=== PATIENT | female | born 2005 | race Caucasian/White ===

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

== ENCOUNTER 2024-02-03 07:14 | Observation (INO) | payer BC ==
[2024-02-03 08:01] LABS: Appearance Cloudy (Clear); Bacteria Many /HPF (None Seen); Bilirubin Small (Negative); Blood Negative (Negative); Epithelial Cells Many /HPF (None Seen); Glucose, Urine Negative (Negative); Ketones 15 (Negative); Leukocyte Esterase Large (Negative); Nitrite Negative (Negative); Protein,Urine Dip 100 (Negative); RBC 0-2 /HPF (0-5); Specific Gravity 1.025 (1.005-1.030); WBC >100 /HPF (0-5)
[2024-02-03] MEDS: ROCEPHIN 1 GM / 100 ML NaCl 1 GM/100 ML IVPB IV ONE (08:46)
[2024-02-03] MEDS: Lactated Ringers 1,000 ML IV SCH ×2 (08:46→10:49)
--- NOTE | 2024-02-03 08:46 | PCM.HP ---
History of Present Illness - Chief Complaint Chief Complaint: abdominal pain History of Present Illness: is a 18 year old female G1Po at 35w2d EGA who sees Dr Yuan in [place] for OB care, she reports to labor and delivery here today with complaints of low abdominal pain for the last 2-3 days, pain is worsening in intensity and comes and goes, she has had vomiting throughout her entire but has worsened to the point of not being able to keep down any fluids or food in the last 2 days. I asked if she had contacted Dr Yuan her OB provider and she states she was told to come in for evaluation and fluids but she decided to come to [place], no known fever, she denies urinary symptoms. - Review of Systems Constitutional: Chills Respiratory: No Cough, No Short Of Breath Cardiac: No Chest Pain, No Edema, No Syncope Abdominal/Gastrointestinal: Abdominal Pain, Nausea, Vomiting, No Diarrhea Genitourinary Symptoms: No Symptoms Skin: No Rash All Other Systems: Reviewed and Negative Medications & Allergies Home Medications: Home Medication List Docusate Sodium [Stool Softener] 1 tab PO DAILY 02/03/24 [History Confirmed 02/03/24] Ondansetron [Ondansetron Odt ] 1 tab PO Q4H PRN 02/03/24 [History Confirmed 02/03/24] Allergies/Adverse Reactions: Allergies Allergy/AdvReac Type Severity Reaction Status Date / Time No Known Drug Allergies Allergy Verified 10/21/21 11:54 - Past Medical History Past Medical History: No GI Medical History: GERD Reproductive Disorders: Other Comment: PCOS, - Past Surgical History Past Surgical History: Yes Neuro Surgical History: No Pertinent History Cardiac History: No Pertinent History Respiratory Surgery: No Pertinent History GI Surgical History: Appendectomy Genitourinary Surgical Hx: No Pertinent History Musculskeletal Surgical Hx: No Pertinent History Female Surgical History: No Pertinent History - Social History Smoking Status: Current every day smoker How long have you smoked: year Exposure to second hand smoke: No Alcohol: None Drug Use: marijuana - Physical Exam General Appearance: mild distress Neurologic Exam: alert, oriented x 3, cooperative Respiratory Exam: normal breath sounds, lungs clear, No respiratory distress Cardiovascular Exam: regular rate/rhythm, normal heart sounds, normal peripheral pulses Gastrointestinal/Abdomen Exam: soft, other (gravid SVE 1cm/50%/-2) Back Exam: No CVA tenderness Extremity Exam: normal inspection, normal range of motion, pelvis stable Skin Exam: normal color, warm, dry, No rash Results - Labs Lab/Micro Results: Lab Results-Last 24 Hours 02/03/24 Range/Units 07:53 Urine Color Dark Yellow A (Yellow) Urine Appearance Cloudy A (Clear) Urine pH 7.0 (4.6-8.0) Ur Specific [place] 1.025 (1.005-1.030) Urine Protein 100 A (Negative) Urine Glucose (UA) Negative (Negative) mg/dL Urine Ketones 15 A (Negative) Urine Blood Negative (Negative) Urine Nitrite Negative (Negative) Urine Bilirubin Small A (Negative) Urine Urobilinogen 1.0 A (0.2) mg/dL Ur Leukocyte Esterase Large A (Negative) U Hyaline Cast (Auto) 3-5 A (0-2) /LPF Urine Microscopic RBC 0-2 (0-5) /HPF Urine Microscopic WBC >100 A (0-5) /HPF Ur Epithelial Cells Many A (None Seen) /HPF Urine Bacteria Many A (None Seen) /HPF Urine Culture Reflexed YES (NO) Assessment/Plan (1) Acute pyelonephritis Current Visit: Yes Status: Acute Assessment & Plan: no allergies, based on UA with >100wbc/hpf appears to have pyelonephritis. see labs/blood culture and urine culture pending. start rocephin 1g IV daily Code(s): N10 - ACUTE PYELONEPHRITIS (2) Dehydration Current Visit: Yes Status: Acute Assessment & Plan: LR bolus 1L ordered then will run at 120 mL/hr Code(s): E86.0 - DEHYDRATION (3) Nausea & vomiting Current Visit: Yes Status: Acute Assessment & Plan: likely a component of hyperemesis, IV zofran ordered and will hydrate. likely exacerbated by active infection as above Code(s): R11.2 - NAUSEA WITH VOMITING, UNSPECIFIED (4) Current Visit: Yes Status: Acute Code(s): Z34.90 - ENCNTR FOR SUPRVSN OF NORMAL , UNSP, UNSP TRIMESTER
[2024-02-03] MEDS: Zofran 4 MG/2 ML VIAL IV PRN (09:02)
[2024-02-03 09:04] LABS: Amphetamine,Urine NEGATIVE (NEGATIVE); Barbiturate,Urine NEGATIVE (NEGATIVE); Benzodiazepine,Urine NEGATIVE (NEGATIVE); Cocaine,Urine NEGATIVE (NEGATIVE); Methadone,Urine NEGATIVE (NEGATIVE); Opiate,Urine NEGATIVE (NEGATIVE); PCP,Urine NEGATIVE (NEGATIVE); THC,Urine POSITIVE (NEGATIVE)
[2024-02-03 09:33] VITALS: TEMP 97.8
[2024-02-03 09:59] LABS: Absolute Neutrophil Ct (ANC) 6.46 x10^3/uL (1.56-6.13); BASOPHIL % 0.2 % (0.1-1.2); Basophil (Absolute #) 0.02 x10^3/uL (0.01-0.08); Eosinophil % 0.1 % (0.7-5.8); Eosinophil (Absolute #) 0.01 x10^3/uL (0.04-0.36); Hematocrit 33.9 % (34.1-44.9); Hemoglobin 11.1 g/dL (11.2-15.7); IMMATURE GRAN # 0.05 x10^3u/L (0.001-0.031); IMMATURE GRAN % 0.6 % (0.001-0.429); Lymphocyte (Absolute #) 1.21 x10^3/uL (1.18-3.74); Lymphocytes % 15.1 % (19.3-51.7); Mean Cell Volume 82.5 fL (79.4-94.8); Mean Corpuscular Hgb Concent. 32.7 g/dL (32.2-35.5); Mean Platelet Volume 10.9 fL (9.4-12.3); Monocyte (Absolute #) 0.28 x10^3/uL (0.24-0.86); Monocytes % 3.5 % (4.7-12.5); Neutrophil % 80.5 % (34.0-71.1); Platelet Count 186 x10^3/uL (182-369); Red Blood Count 4.11 x10^6/uL (3.93-5.22); Red Cell Distribution Width 12.8 % (11.7-14.4)
[2024-02-03 10:15] LABS: ALBUMIN 3.6 g/dL (3.5-5.0); ANION GAP 11.1 MEQ/L (5-15); BILIRUBIN,TOTAL 0.4 mg/dL (0.2-1.3); Calcium 8.4 mg/dL (8.4-10.2); Creatinine 1 0.6 mg/dL (0.52-1.04); EST GLOMERULAR FILTRATION RATE 131.7 ML/MIN; Potassium 3.6 mmol/L (3.5-5.1); Total Protein 6.8 g/dL (6.3-8.2)
[2024-02-03] MEDS: TYLENOL 325 MG PO PRN (10:18)
[2024-02-03] MEDS: BRETHINE 1 MG/ML SQ ONE (10:22)
--- NOTE | 2024-02-03 12:07 | PCM.DS ---
Discharge Summary Date of Admission: 02/03/24 07:14 Admitting Physician: DELMAR DEWEY Primary Care Provider: OBED PHILIPPE Allergies Allergies No Known Drug Allergies Allergy (Verified 10/21/21 11:54) Hospital Summary - Hospital Course Hospital Course: patient arrived with abd pain, 35wks patient of Dr Yuan. found to have pyelonephrtitis, given rocephin 1g IV, had tachycardia epidose with terbutaline, continues to contract every 3 to 4 minutes after fluids and terb - Vitals & Intake/Output Vital Signs: Vital Signs Temperature 97.8 F 02/03/24 07:30 Pulse Rate 90 02/03/24 07:30 Respiratory Rate 14 02/03/24 07:30 Blood Pressure 113/77 02/03/24 07:30 O2 Sat by Pulse Oximetry 97 02/03/24 07:30 Intake & Output: Intake & Output 02/01/24 02/02/24 02/03/24 02/04/24 11:59 11:59 11:59 11:59 Weight 57.606 kg - Lab Result Diagrams: 02/03/24 09:58 02/03/24 09:58 Lab Results-Last 24 Hrs: Lab Results-Last 24 Hours 02/03/24 02/03/24 02/03/24 Range/Units 07:53 08:05 09:58 WBC 8.0 (3.98-10.04) x10^3/uL RBC 4.11 (3.93-5.22) x10^6/uL Hgb 11.1 L (11.2-15.7) g/dL Hct 33.9 L (34.1-44.9) % MCV 82.5 (79.4-94.8) fL MCH 27.0 (25.6-32.2) pg MCHC 32.7 (32.2-35.5) g/dL RDW 12.8 (11.7-14.4) % Plt Count 186 (182-369) x10^3/uL MPV 10.9 (9.4-12.3) fL Gran % 80.5 H (34.0-71.1) % Immature Gran % (Auto) 0.6 H (0.001-0.429) % Nucleat RBC Rel Count 0.0 (0.00-0.2) % Eos # (Auto) 0.01 L (0.04-0.36) x10^3/uL Immature Gran # (Auto) 0.05 H (0.001-0.031) x10^3u/L Absolute Lymphs (auto) 1.21 (1.18-3.74) x10^3/uL Absolute Monos (auto) 0.28 (0.24-0.86) x10^3/uL Absolute Nucleated RBC 0.00 (0.00-0.012) x10^3u/L Lymphocytes % 15.1 L (19.3-51.7) % Monocytes % 3.5 L (4.7-12.5) % Eosinophils % 0.1 L (0.7-5.8) % Basophils % 0.2 (0.1-1.2) % Absolute Granulocytes 6.46 H (1.56-6.13) x10^3/uL Basophils # 0.02 (0.01-0.08) x10^3/uL Sodium (135-145) mmol/L Potassium (3.5-5.1) mmol/L Chloride (98-107) mmol/L Carbon Dioxide (22-30) mmol/L Anion Gap (5-15) MEQ/L BUN (7-17) mg/dL Creatinine (0.52-1.04) mg/dL Estimated GFR ML/MIN Glucose (74-106) mg/dL Calcium (8.4-10.2) mg/dL Total Bilirubin (0.2-1.3) mg/dL AST (14-36) U/L ALT (0-35) U/L Alkaline Phosphatase (38-126) U/L Serum Total Protein (6.3-8.2) g/dL Albumin (3.5-5.0) g/dL Urine Color Dark Yellow A (Yellow) Urine Appearance Cloudy A (Clear) Urine pH 7.0 (4.6-8.0) Ur Specific [place] 1.025 (1.005-1.030) Urine Protein 100 A (Negative) Urine Glucose (UA) Negative (Negative) mg/dL Urine Ketones 15 A (Negative) Urine Blood Negative (Negative) Urine Nitrite Negative (Negative) Urine Bilirubin Small A (Negative) Urine Urobilinogen 1.0 A (0.2) mg/dL Ur Leukocyte Esterase Large A (Negative) U Hyaline Cast (Auto) 3-5 A (0-2) /LPF Urine Microscopic RBC 0-2 (0-5) /HPF Urine Microscopic WBC >100 A (0-5) /HPF Ur Epithelial Cells Many A (None Seen) /HPF Urine Bacteria Many A (None Seen) /HPF Urine Culture Reflexed YES (NO) Urine Opiates Level NEGATIVE (NEGATIVE) Ur Methadone NEGATIVE (NEGATIVE) Urine Barbiturates NEGATIVE (NEGATIVE) Ur Phencyclidine (PCP) NEGATIVE (NEGATIVE) Urine Amphetamine NEGATIVE (NEGATIVE) U Benzodiazepine Level NEGATIVE (NEGATIVE) Urine Cocaine NEGATIVE (NEGATIVE) Urine Marijuana (THC) POSITIVE A (NEGATIVE) 02/03/24 Range/Units 09:58 WBC (3.98-10.04) x10^3/uL RBC (3.93-5.22) x10^6/uL Hgb (11.2-15.7) g/dL Hct (34.1-44.9) % MCV (79.4-94.8) fL MCH (25.6-32.2) pg MCHC (32.2-35.5) g/dL RDW (11.7-14.4) % Plt Count (182-369) x10^3/uL MPV (9.4-12.3) fL Gran % (34.0-71.1) % Immature Gran % (Auto) (0.001-0.429) % Nucleat RBC Rel Count (0.00-0.2) % Eos # (Auto) (0.04-0.36) x10^3/uL Immature Gran # (Auto) (0.001-0.031) x10^3u/L Absolute Lymphs (auto) (1.18-3.74) x10^3/uL Absolute Monos (auto) (0.24-0.86) x10^3/uL Absolute Nucleated RBC (0.00-0.012) x10^3u/L Lymphocytes % (19.3-51.7) % Monocytes % (4.7-12.5) % Eosinophils % (0.7-5.8) % Basophils % (0.1-1.2) % Absolute Granulocytes (1.56-6.13) x10^3/uL Basophils # (0.01-0.08) x10^3/uL Sodium 136 (135-145) mmol/L Potassium 3.6 (3.5-5.1) mmol/L Chloride 103 (98-107) mmol/L Carbon Dioxide 26 (22-30) mmol/L Anion Gap 11.1 (5-15) MEQ/L BUN 8 (7-17) mg/dL Creatinine 0.60 (0.52-1.04) mg/dL Estimated GFR 131.7 ML/MIN Glucose 75 (74-106) mg/dL Calcium 8.4 (8.4-10.2) mg/dL Total Bilirubin 0.40 (0.2-1.3) mg/dL AST 43 H (14-36) U/L ALT 31 (0-35) U/L Alkaline Phosphatase 171 H (38-126) U/L Serum Total Protein 6.8 (6.3-8.2) g/dL Albumin 3.6 (3.5-5.0) g/dL Urine Color (Yellow) Urine Appearance (Clear) Urine pH (4.6-8.0) Ur Specific [place] (1.005-1.030) Urine Protein (Negative) Urine Glucose (UA) (Negative) mg/dL Urine Ketones (Negative) Urine Blood (Negative) Urine Nitrite (Negative) Urine Bilirubin (Negative) Urine Urobilinogen (0.2) mg/dL Ur Leukocyte Esterase (Negative) U Hyaline Cast (Auto) (0-2) /LPF Urine Microscopic RBC (0-5) /HPF Urine Microscopic WBC (0-5) /HPF Ur Epithelial Cells (None Seen) /HPF Urine Bacteria (None Seen) /HPF Urine Culture Reflexed (NO) Urine Opiates Level (NEGATIVE) Ur Methadone (NEGATIVE) Urine Barbiturates (NEGATIVE) Ur Phencyclidine (PCP) (NEGATIVE) Urine Amphetamine (NEGATIVE) U Benzodiazepine Level (NEGATIVE) Urine Cocaine (NEGATIVE) Urine Marijuana (THC) (NEGATIVE) Discharge Exam General Appearance: mild distress Pelvic Exam: other (sve 1cm/50%/-2) Final Diagnosis/Problem List - Final Discharge Diagnosis/Problem (1) labor Current Visit: Yes Status: Acute Assessment & Plan: I spoke with Jazmyn in Dr Yuan's office, he is in surgery but she advised she will contact him and he will accept patient to labor and delivery at [facility] at this time. betamethasone and magnesium ordered, patient will be transferred due to lack of NICU services with potential delivery. I explained to the patient the need for transfer in case she progresses and delivers and she understands necessity for transfer at this time. Code(s): O60.00 - LABOR WITHOUT DELIVERY, UNSPECIFIED TRIMESTER (2) Acute pyelonephritis Current Visit: Yes Status: Acute Assessment & Plan: received 1g rocephin IV, urine and blood cultures are pending. Code(s): N10 - ACUTE PYELONEPHRITIS (3) Dehydration Current Visit: Yes Status: Acute Code(s): E86.0 - DEHYDRATION (4) Nausea & vomiting Current Visit: Yes Status: Acute Code(s): R11.2 - NAUSEA WITH VOMITING, UNSPECIFIED (5) Current Visit: Yes Status: Acute Code(s): Z34.90 - ENCNTR FOR SUPRVSN OF NORMAL , UNSP, UNSP TRIMESTER - Discharge Disposition: DC TO [facility] Condition: Fair Prescriptions: No Action Ondansetron [Ondansetron Odt ] 1 tab PO Q4H PRN PRN Reason: Nausea Docusate Sodium [Stool Softener] 1 tab PO DAILY Follow up with: LIZZ PULIDO FNP [Primary Care Provider] -
[2024-02-03] MEDS: Magnesium Sulfate 40 Gm/1000 Ml H2O Premix*** 1,000 ML IV SCH (12:49)
[2024-02-03] MEDS: Celestone Soluspan 6MG/ML IM ONE (12:49)
[2024-02-03 15:02] VITALS: PULSE 108; RESP 16; O2SAT 100
[2024-02-03 15:13] VITALS: BP 113/77
== END 2024-02-03 12:30 | disposition short-term general hospital (02) ==
LOC: OB 07:14
PROVIDERS: ADMIT Family Medicine; ATTEND Family Medicine
DX: Z34.03 Encounter for supervision of normal first pregnancy, third trimester (principal); Z3A.35 35 weeks gestation of pregnancy
CPT/HCPCS: 36415; 80053; 80307; 81001; 85025; 87040; 87086; 96372; G0378; G0379; J0696; J2405; A9270-GY

== ENCOUNTER 2024-02-04 08:32 | Observation (INO) | payer BC ==
[2024-02-04 09:07] LABS: Appearance Turbid (Clear); Bacteria None Seen /HPF (None Seen); Bilirubin Negative (Negative); Blood Negative (Negative); Epithelial Cells Few /HPF (None Seen); Glucose, Urine Negative (Negative); Hyaline Casts NONE SEEN /LPF (0-2); Ketones 80 (Negative); Leukocyte Esterase Small (Negative); Nitrite Negative (Negative); Ph 8.5 (4.6-8.0); Protein,Urine Dip Trace (Negative); RBC 0-2 /HPF (0-5); Specific Gravity 1.015 (1.005-1.030); Urobilinogen 0.2 mg/dL (0.2)
[2024-02-04] MEDS: Lactated Ringers 1,000 ML IV ONE (09:36)
[2024-02-04] MEDS: Zofran 4 MG/2 ML VIAL IV STA (09:36)
[2024-02-04 10:20] LABS: Absolute Neutrophil Ct (ANC) 5.18 x10^3/uL (1.56-6.13); BASOPHIL % 0.3 % (0.1-1.2); Basophil (Absolute #) 0.02 x10^3/uL (0.01-0.08); Eosinophil % 0.1 % (0.7-5.8); Eosinophil (Absolute #) 0.01 x10^3/uL (0.04-0.36); Hematocrit 33.8 % (34.1-44.9); Hemoglobin 10.9 g/dL (11.2-15.7); IMMATURE GRAN # 0.04 x10^3u/L (0.001-0.031); IMMATURE GRAN % 0.6 % (0.001-0.429); Lymphocyte (Absolute #) 1.34 x10^3/uL (1.18-3.74); Lymphocytes % 19.2 % (19.3-51.7); Mean Cell Volume 81.6 fL (79.4-94.8); Mean Corpuscular Hemoglobin 26.3 pg (25.6-32.2); Mean Corpuscular Hgb Concent. 32.2 g/dL (32.2-35.5); Monocyte (Absolute #) 0.39 x10^3/uL (0.24-0.86); Monocytes % 5.6 % (4.7-12.5); Neutrophil % 74.2 % (34.0-71.1); Platelet Count 205 x10^3/uL (182-369); Red Blood Count 4.14 x10^6/uL (3.93-5.22); Red Cell Distribution Width 12.9 % (11.7-14.4)
[2024-02-04 10:32] LABS: ALBUMIN 3.6 g/dL (3.5-5.0); ANION GAP 11.3 MEQ/L (5-15); BILIRUBIN,TOTAL 0.5 mg/dL (0.2-1.3); Creatinine 1 0.66 mg/dL (0.52-1.04); EST GLOMERULAR FILTRATION RATE 128.7 ML/MIN; Potassium 3.5 mmol/L (3.5-5.1); Total Protein 6.9 g/dL (6.3-8.2)
[2024-02-04] MEDS ORDERED: Docusate Sodium 100 MG PO SCH (12:00)
[2024-02-04] MEDS: Lactated Ringers 1,000 ML IV SCH (12:03)
[2024-02-04] MEDS: TYLENOL EXTRA STRENGTH 500 MG PO PRN (12:45)
--- NOTE | 2024-02-04 14:39 | XRAY ---
Indication: Kidney stone. Lower abdominal pain. Third trimester . Two-dimensional renal sonogram performed. Comparison: None Both kidneys are normal in reniform shape with normal color perfusion. Right kidney measures 11.3 x 6.2 x 5.0 cm and left measures 10.4 x 5.7 x 5.1 cm. Query a few bilateral renal punctate calculi. No hydronephrosis, perinephric fluid, or evidence for obstructive uropathy. Visualized urinary bladder grossly unremarkable. Normal left ureteral jet. Right ureteral jet not seen within the allotted exam time. Impression: Query bilateral renal punctate calculi. No hydronephrosis or evidence for obstructive uropathy.
--- NOTE | 2024-02-04 14:41 | XRAY ---
Indication: Small for gestational age. 2-dimensional OB ultrasound performed. Comparison: None Single intrauterine currently in cephalic presentation. heart rate 138 BPM. The umbilical cord is around neck. Posterior fundal placenta without abruption/previa. BPD measures 8.81 cm corresponding to 35 weeks 4 days. HC measures 31.29 cm corresponding to 35 weeks 0 days. AC measures 31.67 cm corresponding to 35 weeks 4 days. FL measures 6.99 cm corresponding to 35 weeks 6 days. Estimated weight 6 lbs. 0 oz., +/-14 ounces. Approximately 50 percentile. LO is 10.2 cm. Impression: Single viable intrauterine with mean gestational age 35 weeks 4 days. Expected date confinement is March 06, 2024. Incidental complete nuchal cord.
[2024-02-04] MEDS: Cyclobenzaprine 10 MG PO ONE (16:17)
[2024-02-04 16:48] VITALS: BP 132/72; PULSE 79; RESP 16; TEMP 97.9; O2SAT 100
== END 2024-02-04 16:45 | disposition home or self-care (01) ==
LOC: OB 08:32
PROVIDERS: ADMIT Obstetrics & Gynecology; ATTEND Obstetrics & Gynecology
DX: Z34.03 Encounter for supervision of normal first pregnancy, third trimester (principal); Z3A.35 35 weeks gestation of pregnancy
CPT/HCPCS: 36415; 76770; 76805; 80053; 81001; 85025; 87086; G0378; G0379; J2405; A9270-GY

== ENCOUNTER 2024-02-28 07:55 | Inpatient (IN) | payer BC ==
[2024-02-28] MEDS ORDERED: STADOL 2 MG IV PRN (18:00)
[2024-02-28] MEDS ORDERED: BRETHINE 1 MG/ML SQ PRN (18:00)
[2024-02-28] MEDS ORDERED: Nubain 10 MG/ML IV PRN (18:00)
[2024-02-28] MEDS: Lactated Ringers 1,000 ML IV SCH (19:30)
[2024-02-28 19:56] LABS: Absolute Neutrophil Ct (ANC) 8.19 x10^3/uL (1.56-6.13); BASOPHIL % 0.3 % (0.1-1.2); Basophil (Absolute #) 0.03 x10^3/uL (0.01-0.08); Eosinophil % 0.2 % (0.7-5.8); Eosinophil (Absolute #) 0.02 x10^3/uL (0.04-0.36); Hematocrit 30.1 % (34.1-44.9); Hemoglobin 9.7 g/dL (11.2-15.7); IMMATURE GRAN # 0.04 x10^3u/L (0.001-0.031); IMMATURE GRAN % 0.4 % (0.001-0.429); Lymphocyte (Absolute #) 1.59 x10^3/uL (1.18-3.74); Lymphocytes % 15.3 % (19.3-51.7); Mean Cell Volume 78.2 fL (79.4-94.8); Mean Corpuscular Hemoglobin 25.2 pg (25.6-32.2); Mean Corpuscular Hgb Concent. 32.2 g/dL (32.2-35.5); Mean Platelet Volume 11.1 fL (9.4-12.3); Monocyte (Absolute #) 0.49 x10^3/uL (0.24-0.86); Monocytes % 4.7 % (4.7-12.5); Neutrophil % 79.1 % (34.0-71.1); Platelet Count 177 x10^3/uL (182-369); Red Blood Count 3.85 x10^6/uL (3.93-5.22); Red Cell Distribution Width 13.6 % (11.7-14.4); White Blood Count 10.4 x10^3/uL (3.98-10.04)
[2024-02-28 20:41] LABS: ABO TYPING O; Antibody Screen NEGATIVE (NEGATIVE); RH TYPING POSITIVE
[2024-02-28 20:43] LABS: Appearance Clear (Clear); Bacteria None Seen /HPF (None Seen); Bilirubin Negative (Negative); Blood Negative (Negative); Epithelial Cells None Seen /HPF (None Seen); Glucose, Urine Negative (Negative); Hyaline Casts NONE SEEN /LPF (0-2); Ketones Trace (Negative); Leukocyte Esterase Negative (Negative); Nitrite Negative (Negative); Protein,Urine Dip Trace (Negative); RBC 0-2 /HPF (0-5); Specific Gravity 1.025 (1.005-1.030); Urobilinogen 0.2 mg/dL (0.2)
[2024-02-28] MEDS: PITOCIN 30 UNITS/ LR 500 ML 30 UNITS/500 ML PLAST..BAG IV SCH (20:46)
[2024-02-28 20:52] LABS: Amphetamine,Urine NEGATIVE (NEGATIVE); Barbiturate,Urine NEGATIVE (NEGATIVE); Benzodiazepine,Urine NEGATIVE (NEGATIVE); Cocaine,Urine NEGATIVE (NEGATIVE); Methadone,Urine NEGATIVE (NEGATIVE); Opiate,Urine NEGATIVE (NEGATIVE); PCP,Urine NEGATIVE (NEGATIVE); THC,Urine POSITIVE (NEGATIVE)
[2024-02-28] MEDS: Tums EX 750 MG PO PRN (22:12)
[2024-02-28] MEDS: TYLENOL EXTRA STRENGTH 500 MG PO PRN (23:38)
[2024-02-28 23:47] LABS: AMNISURE TEST RESULTS POSITIVE (NEGATIVE)
[2024-02-29] MEDS: Lactated Ringers 1,000 ML IV ONE (00:17)
[2024-02-29] MEDS ORDERED: FENTANYL 2 MCG-BUPIV 0.125%-NS 250 ML Epidur 250 ML EPIDURAL ONE (00:27)
[2024-02-29] MEDS: Zofran 4 MG/2 ML VIAL IV PRN (00:35)
[2024-02-29] MEDS: FENTANYL 2 MCG-BUPIV 0.125%-NS 250 ML Epidur 250 ML EPIDURAL SCH (00:45)
[2024-02-29 03:16] LABS: Appearance Clear (Clear); Bacteria None Seen /HPF (None Seen); Bilirubin Negative (Negative); Blood Trace (Negative); Epithelial Cells None Seen /HPF (None Seen); Glucose, Urine Negative (Negative); Hyaline Casts NONE SEEN /LPF (0-2); Ketones Negative (Negative); Leukocyte Esterase Negative (Negative); Nitrite Negative (Negative); Protein,Urine Dip Negative (Negative); RBC 0-2 /HPF (0-5); Specific Gravity <=1.005 (1.005-1.030); Urobilinogen 0.2 mg/dL (0.2)
[2024-02-29] MEDS ORDERED: Ephedrine Sulfate 50 MG/ML IV PRN (07:00)
[2024-02-29] MEDS: TUCKS TP PRN (08:54)
[2024-02-29] MEDS: LANSINOH 40 GM TOP PRN (08:55)
[2024-02-29] MEDS: Dermoplast Spray TP PRN (08:55)
[2024-02-29] MEDS: Docusate Sodium 100 MG PO SCH (12:01)
[2024-02-29] MEDS ORDERED: PITOCIN 30 UNITS/ LR 500 ML 30 UNITS/500 ML PLAST..BAG IV SCH (15:00)
[2024-02-29] MEDS ORDERED: XYLOCAINE 1% HCL 20 ML MDV IJ PRN (15:00)
[2024-02-29] MEDS: MOTRIN 400 MG PO PRN (15:05)
[2024-03-01] MEDS: Adacel Vial IM ONE (01:29)
[2024-03-01 03:32] VITALS: BP 114/65; PULSE 66; RESP 18; TEMP 98.4; O2SAT 99
[2024-03-01 07:23] LABS: RPR Non Reactive (Non Reactive)
== END 2024-03-01 01:35 | disposition home or self-care (01) | DRG 807 ==
LOC: OB 18:39 → OBSVTOIN 02-29 08:30
PROVIDERS: ADMIT Obstetrics & Gynecology; ATTEND Obstetrics & Gynecology
PROC: 10E0XZZ Delivery of Products of Conception, External Approach (ICD-10-PCS; principal; 2024-02-29)
PROC: 0HQ9XZZ Repair Perineum Skin, External Approach (ICD-10-PCS; 2024-02-29)
DX: O70.0 First degree perineal laceration during delivery (principal); Z37.0 Single live birth; Z3A.39 39 weeks gestation of pregnancy
CPT/HCPCS: 36415; 59400; 80307; 81001; 84112; 85025; 86592; 86850; 86900; 86901; 87086; 90715; 96372; G0378; G0379; J2405; J2590; A9270-GY